=== PATIENT | female | born 1985 | race American Indian/Alaskan Native ===

== ENCOUNTER 2020-04-09 21:49 | Emergency (ER) | payer OTHER ==
[2020-04-09 22:08] VITALS: BP 148/97
--- NOTE | 2020-04-09 23:03 | XRay Report ---
. LEFT FORELEG 4 VIEWS INDICATION / CLINICAL INFORMATION: Fall, pain swelling. COMPARISON: None available. FINDINGS: No fracture, dislocation or skeletal abnormality is seen within the left tibia or fibula Signer Name: Brian Hernandez MD Signed: 04/09/2020 10:58 PM Workstation Name: [id number]
[2020-04-10] MEDS ORDERED: ONDANSETRON 4 MG ODT TAB PO ONE (00:50)
[2020-04-10] MEDS ORDERED: HYDROcodone/ACETAMINOPHEN 7.5-325MG TAB PO ONE (00:50)
[2020-04-10] MEDS ORDERED: IBUPROFEN 600 MG TAB PO ONE (00:50)
--- NOTE | 2020-04-10 01:16 | XRay Report ---
LEFT KNEE 2 VIEWS INDICATION / CLINICAL INFORMATION: Fall - pain. COMPARISON: None available. FINDINGS: No fracture, dislocation or left knee effusion is present. Joint spaces are well preserved. Signer Name: Brian Hernandez MD Signed: 04/10/2020 1:11 AM Workstation Name: [id number]
--- NOTE | 2020-04-10 01:30 | Emergency Department Report ---
ED Lower Extremity HPI - General Chief Complaint: Extremity Injury, Lower Stated Complaint: LEFT LEG PAIN Source: patient Mode of arrival: Wheelchair Limitations: No Limitations - History of Present Illness Initial Comments: Patient is a 34-year-old -German female with no past medical history who presents to the ED with complaint of acute onset persistent worsening left knee pain and left lower leg pain after she bumped her left knee against a piece of machinery at work 3 days ago. Patient states that about 3 hours prior to arrival in the ED, she was playing at home with 1 of her nephews when she slipped and fell down and landed on the left knee again in a flexed position and now unable to bear weight on the left leg because of severe left knee pain and left lower leg pain. Patient denies head or neck injuries, dizziness, syncope, seizures, back pain, hip pain, numbness and tingling or weakness of left leg, loss of consciousness or abdominal pain, chest pain or shortness of breath. MD Complaint: knee injury (left), leg injury (left lower pain), fall -: Sudden, hour(s) (3) Injury: Leg: Left (pain), Knee: Left (pain and swelling) Type of Injury: blunt, hyperflexion, other (fall) Place: work Severity: severe Severity scale (0 -10): 8 Improves With: nothing Worsens With: weight bearing, movement, palpation Context: fall, direct blow Associated Symptoms: swelling, able to partially bear weight. denies: snap/pop sensation, numbness, tingling, unable to bear weight, ambulatory - Related Data Previous Rx's Medication Instructions Recorded Last Taken Type Acetaminophen [Acetaminophen TAB] 325 mg PO Q4H PRN #30 tablet 03/26/17 Unknown Rx HYDROcodone/APAP 5-325 [[place] 1 each PO Q4H PRN #30 tablet 03/26/17 Unknown Rx 5-325 mg TAB] levoFLOXacin [Levaquin TAB] 500 mg PO Q24HR #1 tablet 03/26/17 Unknown Rx Ibuprofen [Motrin] 800 mg PO Q8HR PRN #30 tablet 04/10/20 Unknown Rx methOCARBAMOL [Robaxin TAB] 750 mg PO Q12H PRN #24 tab 04/10/20 Unknown Rx traMADoL [Ultram] 50 mg PO Q6HR PRN #10 tablet 04/10/20 Unknown Rx Allergies Allergy/AdvReac Type Severity Reaction Status Date / Time No Known Allergies Allergy Unverified 06/28/13 07:59 ED Review of Systems ROS: Stated complaint: LEFT LEG PAIN Other details as noted in HPI Constitutional: denies: chills, fever Eyes: denies: eye pain, eye discharge, vision change ENT: denies: ear pain, throat pain Respiratory: denies: cough, shortness of breath, wheezing Cardiovascular: denies: chest pain, palpitations Endocrine: no symptoms reported Gastrointestinal: denies: abdominal pain, nausea, diarrhea Genitourinary: denies: urgency, dysuria, discharge Musculoskeletal: joint swelling (left lower leg), arthralgia (left knee and lower leg pain). denies: back pain Skin: denies: rash, lesions Neurological: denies: headache, weakness, paresthesias Psychiatric: denies: anxiety, depression Hematological/Lymphatic: denies: easy bleeding, easy bruising ED Past Medical Hx - Past Medical History Previous Medical History?: No Additional medical history: LAUREL - Surgical History Past Surgical History?: No Additional Surgical History: laurel - Social History Smoking Status: Current Every Day Smoker Substance Use Type: Alcohol, Marijuana - Medications Home Medications: Home Medications Medication Instructions Recorded Confirmed Last Taken Type Acetaminophen [Acetaminophen TAB] 325 mg PO Q4H PRN #30 tablet 03/26/17 Unknown Rx HYDROcodone/APAP 5-325 [[place] 1 each PO Q4H PRN #30 tablet 03/26/17 Unknown Rx 5-325 mg TAB] levoFLOXacin [Levaquin TAB] 500 mg PO Q24HR #1 tablet 03/26/17 Unknown Rx Ibuprofen [Motrin] 800 mg PO Q8HR PRN #30 tablet 04/10/20 Unknown Rx methOCARBAMOL [Robaxin TAB] 750 mg PO Q12H PRN #24 tab 04/10/20 Unknown Rx traMADoL [Ultram] 50 mg PO Q6HR PRN #10 tablet 04/10/20 Unknown Rx ED Physical Exam - General Limitations: No Limitations General appearance: alert, in no apparent distress - Head Head exam: Present: atraumatic, normocephalic, normal inspection - Eye Eye exam: Present: normal appearance, PERRL, EOMI Pupils: Present: normal accommodation - ENT ENT exam: Present: normal exam, normal orophraynx, mucous membranes moist, TM's normal bilaterally, normal external ear exam - Neck Neck exam: Present: normal inspection, full ROM. Absent: tenderness - Respiratory Respiratory exam: Present: normal lung sounds bilaterally. Absent: respiratory distress, wheezes, rales, rhonchi, chest wall tenderness, accessory muscle use, decreased breath sounds, prolonged expiratory - Cardiovascular Cardiovascular Exam: Present: normal rhythm, tachycardia, normal heart sounds. Absent: systolic murmur, diastolic murmur, rubs, gallop - GI/Abdominal GI/Abdominal exam: Present: soft, normal bowel sounds. Absent: tenderness, guarding, rebound, hyperactive bowel sounds, hypoactive bowel sounds, organomegaly - Extremities Exam Extremities exam: Present: normal inspection, tenderness (Palpable left knee tenderness with mild swelling and limited ROM due to pain), normal capillary refill, joint swelling (left knee mildly swollen), calf tenderness. Absent: full ROM (limited ROM due to pain) - Back Exam Back exam: Present: normal inspection, full ROM. Absent: tenderness, CVA tenderness (R), CVA tenderness (L), muscle spasm, paraspinal tenderness, vertebral tenderness - Neurological Exam Neurological exam: Present: alert, oriented X3, CN II-XII intact, normal gait, reflexes normal - Psychiatric Psychiatric exam: Present: normal affect, normal mood - Skin Skin exam: Present: warm, dry, intact, normal color. Absent: rash ED Course Vital Signs 04/09/20 22:02 Temperature 98.5 F Pulse Rate 133 H Respiratory 18 Rate Blood Pressure 148/97 O2 Sat by Pulse 97 Oximetry ED Lower Extremity MDM - Radiology Data Radiology results: report reviewed, image reviewed Findings [facility] [address] [place] [address] XRay Report Signed Patient: KOKO ALVAREZ MR# : [id number] : 1985 Acct:[id number] Age/Sex: 34 / F ADM Date: 04/09/20 Loc: ED Attending Dr: Ordering Physician: COURTNEY FERRO Date of Service: 04/10/20 Procedure(s): XR knee 1-2V LT Accession Number(s): [id number] cc: COURTNEY FERRO Fluoro Time In Minutes: LEFT KNEE 2 VIEWS INDICATION / CLINICAL INFORMATION: Fall - pain. COMPARISON: None available. FINDINGS: No fracture, dislocation or left knee effusion is present. Joint spaces are well preserved. Signer Name: Brian Hernandez MD Signed: 04/10/2020 1:11 AM Workstation Name: [id number] Transcribed By: TL Dictated By: Brian Hernandez MD Electronically Authenticated By: Brian Hernandez MD Signed Date/Time: 04/10/20110 DD/ 9 TD/TT: Findings [address] [address] XRay Report Signed Patient: KOKO ALVAREZ MR# : [id number] : 1985 Acct:[id number] Age/Sex: 34 / F ADM Date: 04/09/20 Loc: ED Attending Dr: Ordering Physician: ROXY BARONE MD Date of Service: 04/09/20 Procedure(s): XR tibia fibula 2V LT Accession Number(s): [id number] cc: ROXY BARONE MD Fluoro Time In Minutes: . LEFT FORELEG 4 VIEWS INDICATION / CLINICAL INFORMATION: Fall, pain swelling. COMPARISON: None available. FINDINGS: No fracture, dislocation or skeletal abnormality is seen within the left tibia or fibula Signer Name: Brian Hernandez MD Signed: 04/09/2020 10:58 PM Workstation Name: [id number] Transcribed By: TL Dictated By: Brian Hernandez MD Electronically Authenticated By: Brian Hernandez MD Signed Date/Time: 04/09/202257 DD/ 57 TD/TT: - Medical Decision Making This is a 34-year-old -German female with no past medical history who presents to the ED with complaint of acute onset persistent worsening left knee pain and left lower leg pain after she bumped her left knee against a piece of machinery at work 3 days ago. Patient states that about 3 hours prior to arrival in the ED, she was playing at home with 1 of her nephews when she slipped and fell down and landed on the left knee again in a flexed position and now unable to bear weight on the left leg because of severe left knee pain and left lower leg pain. In the ED, patient is alert and oriented x3 and is not in distress but appears to be in pain and anxious. Patient was treated for pain in the ED. Left knee and left tib-fib x-rays showed no acute fractures or subluxations. On reevaluation, patient's pain is well controlled medications. Left knee was splinted with Alexis wrap and the patient was discharged home on pain medications and muscle relaxants, and was advised to follow-up with her primary care physician in 5 to 7 days for reevaluation or return to the ED immediately if symptoms get worse. - Differential Diagnosis Knee fracture; Knee sprain; Muscle strain; Contusion of leg Critical care attestation.: If time is entered above; I have spent that time in minutes in the direct care of this critically ill patient, excluding procedure time. ED Disposition Clinical Impression: Sprain of left knee/leg Qualifiers: Encounter type: initial encounter Qualified Code(s): S83.92XA - Sprain of unspecified site of left knee, initial encounter Contusion of left lower extremity Qualifiers: Encounter type: initial encounter Qualified Code(s): S80.12XA - Contusion of left lower leg, initial encounter Strain of gastrocnemius muscle of left lower extremity Qualifiers: Encounter type: initial encounter Qualified Code(s): S86.112A - Strain of other muscle(s) and tendon(s) of posterior muscle group at lower leg level, left leg, initial encounter Disposition: DC-01 TO HOME OR SELFCARE Is pt being admited?: No Does the pt Need Aspirin: No Condition: Stable Instructions: Muscle Strain (ED), Leg Sprain (ED), Knee Sprain (ED) Additional Instructions: The x-rays of left knee and leg show no acute fracture or subluxations. Therefore, take medications with food, drink plenty of fluids and follow up with your Primary Care Physician in 7-10 days for reevaluation. Return to the ED immediatewly if symptoms get worse. Prescriptions: Ibuprofen [Motrin] 800 mg PO Q8HR PRN #30 tablet PRN Reason: Pain , Severe (7-10) methOCARBAMOL [Robaxin TAB] 750 mg PO Q12H PRN #24 tab PRN Reason: Muscle Spasm traMADoL [Ultram] 50 mg PO Q6HR PRN #10 tablet PRN Reason: Pain Referrals: [facility] [Provider Group] - 3-5 Days Time of Disposition: 01:34 Print Language: MALAY
== END 2020-04-10 04:29 | disposition home or self-care (01) ==
LOC: ED 21:49
DX: S83.92XA Sprain of unspecified site of left knee, initial encounter (principal); S86.812A Strain of other muscle(s) and tendon(s) at lower leg level, left leg, initial encounter; S80.12XA Contusion of left lower leg, initial encounter; F17.200 Nicotine dependence, unspecified, uncomplicated; F12.10 Cannabis abuse, uncomplicated; Z98.890 Other specified postprocedural states; Z79.1 Long term (current) use of non-steroidal anti-inflammatories (NSAID); Z79.899 Other long term (current) drug therapy; W01.198A Fall on same level from slipping, tripping and stumbling with subsequent striking against other object, initial encounter; Y93.89 Activity, other specified; Y92.89 Other specified places as the place of occurrence of the external cause; Y99.0 Civilian activity done for income or pay
CPT/HCPCS: Q0162